=== PATIENT | male | born 1970 | race Two or more races ===

== ENCOUNTER 2018-08-08 21:16 | Emergency (ER) | payer MEDICAID ==
[~2018-08-08] VITALS: Ht 185.4 cm; Wt 82.6 kg
[~2018-08-08 21:16] MED LIST: Nyquil PO
[2018-08-08 21:50] VITALS: BP 128/73
--- NOTE | 2018-08-08 21:58 | Emergency Room Report ---
History of Present Illness General Chief Complaint: Chest Pain Source: Patient Present Illness HPI This is a 47-year-old male with history of anxiety. He presents with chief complaint of anxiety. Also complaining of chest pain with anxiety. He is out of his by him. He claimed that he has prescription of Hernandez by at [facility] but is in [place]. He was here earlier for the same thing. He left AMA because he had to go to smoke. I saw him with his luggage walking to the bus stop when I came in. He then call 911. Complaining of anxiety. Said he needed some Ativan. Denies any fever chills but no nausea no vomiting. Nothing made it better. Nothing made it worse. Right now has no pain. He was at [facility] earlier today. Before that, yesterday he was at an ER in [facility]. Patient had multiple different hospital stickers on his luggage. Allergies: Coded Allergies: No Known Allergies (Unverified , 08/08/18) Patient History Past Medical History: see triage record, old chart reviewed, psych hx, HIV Past Surgical History: other Pertinent Family History: none Social History: Denies: smoking Immunizations: other Reviewed Nursing Documentation: PMH: Agreed; PSxH: Agreed Nursing Documentation-PMH Past Medical History: No History, Except For Hx Hypertension: Yes Hx Diabetes: Yes Review of Systems Eye: Denies: eye pain, blurred vision ENT: Denies: ear pain, nose congestion, throat swelling Respiratory: Denies: cough, shortness of breath Cardiovascular: Reports: chest pain; Denies: palpitations Gastrointestinal: Denies: abdominal pain, diarrhea, nausea, vomiting Musculoskeletal: Denies: back pain, joint pain Skin: Denies: rash Neurological: Denies: headache, numbness Endocrine: Denies: increased thirst, increased urine Hematologic/Lymphatic: Denies: easy bruising All Other Systems: negative except mentioned in HPI Physical Exam Vital Signs Date Time Temp Pulse Resp B/P (MAP) Pulse Ox O2 Delivery O2 Flow Rate FiO2 08/08/18 21:40 98.8 110 16 146/94 100 Room Air vitals with tachycardia Sp02 EP Interpretation: reviewed, normal General Appearance: well appearing, no apparent distress, alert Head: normocephalic, atraumatic Eyes: bilateral eye PERRL, bilateral eye EOMI ENT: hearing grossly normal, normal pharynx Neck: full range of motion, supple, no meningismus Respiratory: chest non-tender, lungs clear, normal breath sounds Cardiovascular #1: regular rate, rhythm, no murmur Gastrointestinal: normal bowel sounds, non tender, no mass, no organomegaly, no bruit, non-distended Musculoskeletal: back normal, gait/station normal, normal range of motion Psychiatric: mood/affect normal Skin: warm/dry Medical Decision Making Diagnostic Impression: Primary Impression: Anxiety Additional Impression: Chest pain Qualified Codes: R07.9 - Chest pain, unspecified ER Course Patient with chest pain. He's been to multiple hospitals for the same. His x- ray sleeping without any issue here. Heart rate less than 100. No evidence of ACS, PE, dissection to name a few. He has no fever here. I told patient I am uncomfortable prescribing him Byam since he get 90 tablets every month. Told him to go picker/puller his prescription. We'll discharge home. EKG Diagnostic Results Rate: tachycardiac Rhythm: NSR ST Segments: no acute changes Rhythm Strip Diag. Results Rhythm Strip Time: 21:58 EP Interpretation: yes Rate: 100 Rhythm: NSR, no PVC's, no ectopy Last Vital Signs Date Time Temp Pulse Resp B/P (MAP) Pulse Ox O2 Delivery O2 Flow Rate FiO2 08/08/18 21:40 98.8 110 16 146/94 100 Room Air Status: improved Disposition: HOME, SELF-CARE Condition: Stable Patient Instructions: Nonspecific Chest Pain Additional Instructions: Follow-up with your doctor in 7 days. Return if symptom worsen. Kyler Jay MD Aug 08, 2018 21:58
[2018-08-08 23:28] VITALS: BP 130/75
--- NOTE | 2018-08-10 16:39 | Cardiology Report ---
APPROVED REPORT EKG Measurement Heart [id number] Sinus tachycardia with premature atrial complexes with aberrant conduction T wave abnormality, consider inferior ischemia Abnormal ECG
== END 2018-08-08 23:40 | disposition home or self-care (01) ==
LOC: EDBD 21:16 → EDUNIT# 21:16 → EMR 22:10
DX: R07.9 Chest pain, unspecified (principal); F41.9 Anxiety disorder, unspecified; R00.0 Tachycardia, unspecified; I10 Essential (primary) hypertension; E11.9 Type 2 diabetes mellitus without complications; F17.200 Nicotine dependence, unspecified, uncomplicated
CPT/HCPCS: 84484; 93005; 99283